=== PATIENT | female | born 1975 | race Asian ===

== ENCOUNTER → 2017-02-07 | Outpatient (CLI) | payer BC ==
--- NOTE | 2017-02-07 14:38 | RADIOLOGY REPORT PS360 ---
US PELVIS-TRANSVAGINAL ONLY HISTORY: Right-sided pelvic pain PELVIC PAIN ORDERING PHYSICIAN: Pedrito aSnders MD PATIENT AGE: 41 years COMPARISON: None FINDINGS: The uterus measures 6 x 4 x 4.5 cm with a combined endometrial thickness of 7 mm. The uterus is retroverted. There are at least 3 fibroids one measuring 1 cm in the posterior aspect of the body the uterus, another measuring 0.8 cm within the posterior aspect of the body the uterus, and one measuring 1.4 cm in the fundus of the uterus. The left ovary is 3.4 x 1.7 cm and contains a 1 cm somewhat irregular cyst. The right ovary is 3.2 x 1.9 cm and contains a 2.4 cm cyst. No cul-de-sac fluid evident. IMPRESSION: 1. Small uterine fibroids. 2. 2.4 cm right ovarian cyst
--- NOTE | 2017-02-07 14:38 | RADIOLOGY REPORT PS360 ---
US PELVIS-TRANSVAGINAL ONLY HISTORY: Right-sided pelvic pain PELVIC PAIN ORDERING PHYSICIAN: Pedrito Sanders MD PATIENT AGE: 41 years COMPARISON: None FINDINGS: The uterus measures 6 x 4 x 4.5 cm with a combined endometrial thickness of 7 mm. The uterus is retroverted. There are at least 3 fibroids one measuring 1 cm in the posterior aspect of the body the uterus, another measuring 0.8 cm within the posterior aspect of the body the uterus, and one measuring 1.4 cm in the fundus of the uterus. The left ovary is 3.4 x 1.7 cm and contains a 1 cm somewhat irregular cyst. The right ovary is 3.2 x 1.9 cm and contains a 2.4 cm cyst. No cul-de-sac fluid evident. IMPRESSION: 1. Small uterine fibroids. 2. 2.4 cm right ovarian cyst
== END ==
LOC: RAD 09:30
DX: R10.2 Pelvic and perineal pain (principal)